=== PATIENT | female | born 1985 | race Caucasian/White ===

== ENCOUNTER 2017-07-25 11:41 | Emergency (ER) | payer OTHER, SELFPAY ==
[2017-07-25] MEDS ORDERED: Norflex 60 MG/2 ML IM ONE (12:23)
[2017-07-25] MEDS ORDERED: TORAdol 30 mg Injection IM ONE (12:23)
--- NOTE | 2017-07-25 12:25 | ERPHSYRPT ---
- History of Present Illness Time Seen by Provider: 07/25/17 12:19 Source: patient Patient Subjective Stated Complaint: "I fell down my basement steps last night. it was about 6 steps. i fell back onto my butt and went down like a slide" Triage Nursing Assessment: aox3, breathing easy unlabored, skin pink warm dry, steady slow gait Physician History: CC: back pain Hx: 32 y/o patient fell on stairs yesterday. She has hx of back problems. She now has low back pain radiating to hips. Normal uriantion. No neck pain. No chest or abd pain. No other injuries. Pain not better at home with APAP. States not . On custodial OCP. Timing/Duration: yesterday Back Pain Location: lumbar spine Back Pain Radiation: buttocks, upper legs Severity of Pain-Max: severe Severity of Pain-Current: moderate Allergies/Adverse Reactions: Penicillins Allergy (Verified 07/25/17 11:52) Home Medications: Aripiprazole [Abilify] 2 mg PO DAILY 07/25/17 [History] Citalopram Hydrobromide [Celexa] 10 mg PO DAILY 07/25/17 [History] Gabapentin 200 mg PO QID 07/25/17 [History] Hx Tetanus, Diphtheria Vaccination/Date Given: (unknown) - Review of Systems Constitutional: No Fever, No Chills Eyes: No Symptoms Ears, Nose, & Throat: No Symptoms Respiratory: No Dyspnea Cardiac: No Chest Pain Abdominal/Gastrointestinal: No Abdominal Pain, No Nausea, No Vomiting Musculoskeletal: Back Pain, Fall, Injury, No Neck Pain, No Joint Pain Skin: No Rash Neurological: No Focal Weakness, No Headache, No Parasthesia All Other Systems: Reviewed and Negative - Past Medical History Pertinent Past Medical History: Yes Other Medical History: mental health. prior back problems - Social History Smoking Status: Current every day smoker How long have you smoked: 1.5 ppd - Nursing Vital Signs Nursing Vital Signs: Initial Vital Signs Temperature 98.7 F 07/25/17 11:46 Pulse Rate 98 H 07/25/17 11:46 Respiratory Rate 14 07/25/17 11:46 Blood Pressure 145/93 07/25/17 11:46 O2 Sat by Pulse Oximetry 97 07/25/17 11:46 Pain Scale Pain Intensity [Left Lower 8 Back] Pain Intensity 8 - Physical Exam General Appearance: alert Eye Exam: PERRL/EOMI Ears, Nose, Throat Exam: normal ENT inspection, moist mucous membranes Neck Exam: normal inspection, non-tender, supple, No midline tenderness Respiratory Exam: normal breath sounds, lungs clear Cardiovascular Exam: regular rate/rhythm Gastrointestinal Exam: soft, No tenderness, No distention Back Exam: normal inspection, point tenderness (low lumbar) Extremity Exam: normal inspection, normal range of motion Neurologic Exam: alert, oriented x 3, cooperative, 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, sensation nml, other (2+ MSR's bilateral patellar), No motor deficits Skin Exam: warm, dry, No rash SpO2 Interpretation: normal SpO2: 97 Oxygen Delivery: Room Air - Course Nursing assessment & vital signs reviewed: Yes - Radiology Exams lumbar spine, pelvis X-ray Interpretation: Teleradiologist Report, No Fracture Ordered Tests: Active Orders 24 hr Category Date Time Status LUMBAR LIMITED (2 OR 3 VIEWS) Stat Exams 07/25/17 12:23 Completed PELVIS (1 OR 2 VIEWS) Stat Exams 07/25/17 12:23 Completed Medication Summary Discontinued Medications Generic Name Dose Route Start Last Admin Trade Name Goldyq PRN Reason Stop Dose Admin Ketorolac Tromethamine 60 mg 07/25/17 12:23 07/25/17 12:57 Toradol 30 Mg Injection IM 07/25/17 12:24 60 mg STAT ONE Administration Ketorolac Tromethamine Confirm 07/25/17 12:53 Toradol 30 Mg Injection Administered 07/25/17 12:54 Dose 60 mg .ROUTE .STK-MED ONE Orphenadrine Citrate 60 mg 07/25/17 12:23 07/25/17 12:56 Norflex 60 Mg/2 Ml IM 07/25/17 12:24 60 mg STAT ONE Administration Orphenadrine Citrate Confirm 07/25/17 12:53 Norflex 60 Mg/2 Ml Administered 07/25/17 12:54 Dose 60 mg .ROUTE .STK-MED ONE - Progress Progress Note: 07/25/17 13:36 Pt stable. Will release with instr. She has appt with Dr Murphy next week. Counseled pt/family regarding: diagnosis, need for follow-up - Departure Time of Disposition: 13:36 Departure Disposition: Home Clinical Impression: Fall down stairs, Lumbar sprain Condition: Stable Critical Care Time: No Referrals: MYRNA MURPHY [Primary Care Provider] - Instructions: Low Back Pain Additional Instructions: BACK INJURY 1. May apply moist heat frequently for relief of pain. Take care not to burn the skin. Do not use heat for more than 30 minutes at a time. 2. Try to sleep on a firm bed, flat on your back. 3. If no improvement is noticed in 2-3 days, follow up with your family physician. 4. If you notice any numbness, tingling, weakness, or problems with your bowel or bladder, you should call your family physician or return to the emergency department. No driving today or while taking norflex. Rx norflex. Rx naproxen. Follow up next week with Dr Murphy. Prescriptions: Naproxen 500 mg [Naprosyn 500 MG] 500 mg PO BID #20 tablet Orphenadrine Citrate 100 mg [Norflex 100 MG Tablet] 1 tab PO BID #10 tab
[2017-07-25] MEDS ORDERED: Norflex 60 MG/2 ML ONE (12:53)
[2017-07-25] MEDS ORDERED: TORAdol 30 mg Injection ONE (12:53)
[2017-07-25 13:02] VITALS: BP 111/69; PULSE 77
--- NOTE | 2017-07-25 13:02 | XRAY ---
Indication: Pain following fall. Comparison: None Single AP pelvis obtained. No bony, articular, or soft tissue abnormalities. Lumbar spine reported separately.
--- NOTE | 2017-07-25 13:06 | XRAY ---
Indication: Pain following fall. Comparison: None 3 views of the lumbar spine demonstrates 5 lumbar segments with partially sacralized L6 and tiny L6 anterior endplate spur. No other bony, articular, or soft tissue abnormalities.
[2017-07-25 13:38] VITALS: O2SAT 97
== END 2017-07-25 13:41 | disposition home or self-care (01) ==
LOC: ED 11:41
DX: S33.5XXA Sprain of ligaments of lumbar spine, initial encounter (principal); W10.9XXA Fall (on) (from) unspecified stairs and steps, initial encounter
CPT/HCPCS: 72100; 72170; 96372; 99284; J1885; J2360

== ENCOUNTER 2018-11-06 11:07 | Emergency (ER) | payer OTHER ==
--- NOTE | 2018-11-06 12:06 | ERPHSYRPT ---
- History of Present Illness Time Seen by Provider: 11/06/18 11:56 Source: patient Exam Limitations: no limitations Patient Subjective Stated Complaint: PT states "I broke the top of my foot a month ago and I was told to stay off of it and not go to work. Meanwhile my boss called me and said if I didn't come to work they were going to take me off of payroll so I went back and has been standing and walking on it. Now there is something definitely wrong with it. My foot hurts and it is swollen and bruised." Triage Nursing Assessment: Pt alert and oriented X 3, skin pwd. PT arrived wearing a boot that was to small for her foot, stated she borrowed it. Pt ambulates with a limp. PT right foot slightly swollen, bruised and tender. Physician History: The patient is a 33-year-old female with her mother complaining of worsening pain to the top of her right foot over the past few days. She states that she broke a bone in her foot one month ago. She was given a release from work. Her boss called her and told her that if she didn't come to work, she would not have a job. 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 She was given crutches but refused to use them. Now when she wakes up in the morning her right foot is very painful. Method of Injury: fell Occurred: other (1 month ago) Quality: constant, stabbing Severity of Pain-Max: moderate Severity of Pain-Current: moderate Lower Extremities Pain: foot: right Modifying Factors: Improves With: nothing Associated Symptoms: none Allergies/Adverse Reactions: Penicillins Allergy (Verified 07/25/17 11:52) naproxen Adverse Reaction (Intermediate, Verified 11/06/18 11:20) Vomiting Home Medications: Aripiprazole [Abilify] 2 mg PO DAILY 07/25/17 [History] Citalopram Hydrobromide [Celexa] 10 mg PO DAILY 07/25/17 [History] Gabapentin 200 mg PO QID 07/25/17 [History] Hx Tetanus, Diphtheria Vaccination/Date Given: Yes Hx Influenza Vaccination/Date Given: Yes Hx Pneumococcal Vaccination/Date Given: Yes Immunizations Up to Date: Yes - Review of Systems Constitutional: No Fever, No Chills Eyes: No Symptoms Ears, Nose, & Throat: No Symptoms Respiratory: No Cough, No Dyspnea Cardiac: No Chest Pain, No Edema, No Syncope Abdominal/Gastrointestinal: No Abdominal Pain, No Nausea, No Vomiting, No Diarrhea Genitourinary Symptoms: No Dysuria Musculoskeletal: Fall, Injury Skin: No Rash Neurological: No Dizziness, No Focal Weakness, No Sensory Changes Psychological: No Symptoms Endocrine: No Symptoms Hematologic/Lymphatic: No Symptoms Immunological/Allergic: No Symptoms All Other Systems: Reviewed and Negative - Past Medical History Pertinent Past Medical History: Yes Psycho-Social History: Bipolar Other Medical History: mental health. prior back problems - Past Surgical History Past Surgical History: No - Social History Smoking Status: Current every day smoker How long have you smoked: 17 years Exposure to second hand smoke: Yes Drug Use: none Patient Lives Alone: No - Female History Hx Last Menstrual Period: 10/19/2018 Hx Now: No - Nursing Vital Signs Nursing Vital Signs: Initial Vital Signs Temperature 98.5 F 11/06/18 11:12 Pulse Rate 99 H 11/06/18 11:12 Respiratory Rate 18 11/06/18 11:12 Blood Pressure 134/73 11/06/18 11:12 O2 Sat by Pulse Oximetry 98 11/06/18 11:12 Pain Scale Pain Intensity 6 - Physical Exam General Appearance: alert Eyes, Ears, Nose, Throat Exam: moist mucous membranes Neck Exam: non-tender, supple Cardiovascular/Respiratory Exam: chest non-tender, normal breath sounds, regular rate/rhythm, no respiratory distress Gastrointestinal/Abdominal Exam: non-tender, guarding Back Exam: normal inspection, No vertebral tenderness Hips Exam: bilateral: normal inspection Legs Exam: bilateral leg: normal inspection Knees Exam: bilateral knee: normal inspection Ankle Exam: bilateral ankle: normal inspection Foot Exam: right foot: soft tissue tenderness (midfoot), left foot: normal inspection Neuro/Tendon Exam: normal sensation, normal motor functions Mental Status Exam: alert, oriented x 3, cooperative Skin Exam: normal color, warm, dry SpO2 Interpretation: normal SpO2: 98 Oxygen Delivery: Room Air - Radiology Exams Right Foot X-ray Interpretation: Reviewed by me, Teleradiologist Report (per Dr Abreu), Negative, No Fracture, Other (heel spur, talonavicular accessory ossicle, tiny cuboid accessory ossicle) Ordered Tests: Active Orders 24 hr Category Date Time Status FOOT (MINIMUM 3 VIEWS) Stat Exams 11/06/18 12:10 Completed Medication Summary Discontinued Medications Generic Name Dose Route Start Last Admin Trade Name Miguel A PRN Reason Stop Dose Admin Ketorolac Tromethamine 60 mg 11/06/18 12:10 11/06/18 12:14 Toradol 30 Mg Injection IM 11/06/18 12:11 60 mg STAT ONE Administration Ketorolac Tromethamine Confirm 11/06/18 12:12 Toradol 30 Mg Injection Administered 11/06/18 12:13 Dose 60 mg .ROUTE .STK-MED ONE - Progress Progress: unchanged Counseled pt/family regarding: diagnosis, rad results - Departure Time of Disposition: 13:03 Departure Disposition: Home ( ) Clinical Impression: Tendinitis of right foot Condition: Stable Critical Care Time: No Referrals: SINDY CISSE MD [Primary Care Provider] - Additional Instructions: You have tendinitis of the right foot. The x-ray did not show any broken bones. I think you develop tendinitis because of the hard boot you were wearing was too small. You were placed in an Henri wrap in the ER. You were given Toradol 60 mg by IM in the ER. Take ibuprofen 600 mg every 6 hours as needed. Ice your foot 2-3 times a day until pain free. You are released to go back to work. Follow-up with your primary medical doctor as needed. Prescriptions: Ibuprofen 1 tab PO Q6H PRN PRN #24 tablet PRN Reason: pain
[2018-11-06] MEDS ORDERED: TORAdol 30 mg Injection IM ONE (12:10)
[2018-11-06] MEDS ORDERED: TORAdol 30 mg Injection ONE (12:12)
[2018-11-06 12:18] VITALS: PULSE 88
--- NOTE | 2018-11-06 12:52 | XRAY ---
Indication: Pain following injury one month ago. Comparison: None 3 nonweightbearing views of the right foot demonstrates tiny posterior heel spur, small talonavicular accessory ossicle, and tiny cuboid accessory ossicle. No other bony, articular, or soft tissue abnormalities.
[2018-11-06 13:19] VITALS: BP 126/68; O2SAT 99
== END 2018-11-06 13:20 | disposition home or self-care (01) ==
LOC: ED 11:07
DX: M77.51 Other enthesopathy of right foot and ankle (principal); Z79.899 Other long term (current) drug therapy
CPT/HCPCS: 73630; 96372; 99284; J1885

== ENCOUNTER 2020-03-04 10:02 | Emergency (ER) | payer OTHER ==
[2020-03-04 10:24] VITALS: O2SAT 98
[2020-03-04] MEDS ORDERED: TORAdol 30 mg Injection IV ONE (10:38)
[2020-03-04] MEDS ORDERED: Norflex 60 MG/2 ML IM ONE (10:38)
[2020-03-04] MEDS ORDERED: Norflex 60 MG/2 ML IV ONE (10:46)
--- NOTE | 2020-03-04 10:47 | ERPHSYRPT ---
- History of Present Illness Time Seen by Provider: 03/04/20 10:42 Source: patient Exam Limitations: no limitations Patient Subjective Stated Complaint: Pt states that she has fibromyalgia and that this is a flair up, pt states that it hurts in her lower back, nathalie knees and is itching in her neck area Triage Nursing Assessment: Pt brought to the ER by her mother, mom has double pneumonia and is at the respiratory clinic and was tested negative for covid, tachycardic, reports having these symptoms in the past with the last being 2 weeks ago, pulses normal, rates pain 9/10, lungs clear, last BM today, last intake 1000, skin n/w/d Physician History: Pt states that she has fibromyalgia and that this is a flair up, pt states that it hurts in her lower back, nathalie knees and is itching in her neck area Timing/Duration: today Severity: moderate Associated Symptoms: denies symptoms Allergies/Adverse Reactions: Penicillins Allergy (Severe, Verified 03/04/20 10:24) naproxen Allergy (Intermediate, Verified 03/04/20 10:24) Vomiting Home Medications: Benztropine Mesylate [Cogentin] 1 mg PO BID 03/04/20 [History] Cariprazine HCl [Vraylar] 1.5 mg PO DAILY 03/04/20 [History] Duloxetine HCl [Cymbalta] 20 mg PO DAILY 03/04/20 [History] Metformin HCl 500 mg [Glucophage 500 MG] 500 mg PO BIDWM 03/04/20 [History ] Prazosin HCl [Minipress] 2 mg PO HS 03/04/20 [History] Pregabalin [Lyrica 150Mg] 150 mg PO BID 03/04/20 [History] Trazodone HCl 150 mg PO UD 03/04/20 [History] Hx Tetanus, Diphtheria Vaccination/Date Given: Yes Hx Influenza Vaccination/Date Given: Yes Hx Pneumococcal Vaccination/Date Given: Yes Travel Risk - International Travel Have you traveled outside of the country in past 3 weeks: No Have you or anyone close to you been diagnosed with or: No Do your reside in a community with a known COVID-19 case?: Yes If Yes where:: [facility] - Coronavirus Screening Has patient experienced Coronavirus symptoms: No - Review of Systems Constitutional: No Fever, No Chills Eyes: No Symptoms Ears, Nose, & Throat: No Symptoms Respiratory: No Cough, No Dyspnea Cardiac: No Chest Pain, No Edema, No Syncope Abdominal/Gastrointestinal: No Abdominal Pain, No Nausea, No Vomiting, No Diarrhea Genitourinary Symptoms: No Dysuria Musculoskeletal: Arthralgias, Back Pain, Neck Pain Skin: No Rash Neurological: No Dizziness, No Focal Weakness, No Sensory Changes Psychological: No Symptoms Endocrine: No Symptoms All Other Systems: Reviewed and Negative - Past Medical History Pertinent Past Medical History: Yes Endocrine Medical History: Diabetes Type II Musculoskeletal History: Fibromyalgia Psycho-Social History: Bipolar Other Medical History: mental health. prior back problems. PTSD - Past Surgical History Past Surgical History: Yes Other Surgical History: tubes in ears in 2nd grade - Social History Smoking Status: Current every day smoker How long have you smoked: 17 years Exposure to second hand smoke: Yes Drug Use: none Patient Lives Alone: No - Female History Hx Last Menstrual Period: 03/03/2020 Hx Now: No - Nursing Vital Signs Nursing Vital Signs: Initial Vital Signs Temperature 98.0 F 03/04/20 10:10 Pulse Rate 113 H 03/04/20 10:10 Blood Pressure 140/99 03/04/20 10:10 O2 Sat by Pulse Oximetry 98 03/04/20 10:10 Pain Scale Pain Intensity [Lower Distal 9 Back] Pain Intensity 9 - Physical Exam General Appearance: no apparent distress, alert Eye Exam: PERRL/EOMI, eyes nml inspection Ears, Nose, Throat Exam: normal ENT inspection, TMs normal, pharynx normal, moist mucous membranes Neck Exam: normal inspection, non-tender, supple, full range of motion Respiratory Exam: normal breath sounds, lungs clear, No respiratory distress Cardiovascular Exam: regular rate/rhythm, normal heart sounds, normal peripheral pulses Gastrointestinal/Abdomen Exam: soft, normal bowel sounds, No tenderness, No mass Back Exam: normal inspection, normal range of motion, muscle spasm, No CVA tenderness, No vertebral tenderness Extremity Exam: normal inspection, normal range of motion, pelvis stable Neurologic Exam: alert, oriented x 3, cooperative, normal mood/affect, nml cerebellar function, nml station & gait, sensation nml, No motor deficits Skin Exam: normal color, warm, dry, No rash Lymphatic Exam: No adenopathy SpO2: 98 - Course Nursing assessment & vital signs reviewed: Yes Ordered Tests: Active Orders 24 hr Category Date Time Status Clean Catch Urine Specimen STAT Care 03/04/20 10:44 Active CULTURE,URINE Stat Lab 03/04/20 10:39 Received UA W/RFX UR CULTURE Stat Lab 03/04/20 10:39 Completed Urine Triage Profile Stat Lab 03/04/20 10:45 Completed Medication Summary Discontinued Medications Generic Name Dose Route Start Last Admin Trade Name Goldyq PRN Reason Stop Dose Admin Ceftriaxone Sodium 1,000 mg 03/04/20 11:24 Rocephin 1000 Mg Inj IM 03/04/20 11:25 STAT ONE Ketorolac Tromethamine 30 mg 03/04/20 10:38 03/04/20 10:51 Toradol 30 Mg Injection IV 03/04/20 10:39 30 mg STAT ONE Administration Ketorolac Tromethamine Confirm 03/04/20 10:49 Toradol 30 Mg Injection Administered 03/04/20 10:50 Dose 30 mg .ROUTE .STK-MED ONE Orphenadrine Citrate 60 mg 03/04/20 10:38 03/04/20 10:44 Norflex 60 Mg/2 Ml IM 03/04/20 10:39 Not Given STAT ONE Orphenadrine Citrate 30 mg 03/04/20 10:46 03/04/20 10:52 Norflex 60 Mg/2 Ml IV 03/04/20 10:47 30 mg STAT ONE Administration Orphenadrine Citrate Confirm 03/04/20 10:49 Norflex 60 Mg/2 Ml Administered 03/04/20 10:50 Dose 60 mg .ROUTE .STK-MED ONE Lab/Rad Data: Laboratory Results 03/04/20 03/04/20 Range/Units 10:45 10:39 Urine Color YELLOW (YELLOW) Urine Appearance SLIGHTLY CLOUDY (CLEAR) Urine pH 8.0 (5-6) Ur Specific [place] 1.016 (1.005-1.025) Urine Protein NEGATIVE (Negative) Urine Ketones NEGATIVE (NEGATIVE) Urine Blood MODERATE (0-5) Prosper/ul Urine Nitrite NEGATIVE (NEGATIVE) Urine Bilirubin NEGATIVE (NEGATIVE) Urine Urobilinogen NEGATIVE (0-1) mg/dL Ur Leukocyte Esterase SMALL (NEGATIVE) Urine WBC (Auto) 3-5 (0-5) /HPF Urine RBC (Auto) 11-15 (0-2) /HPF U Epithel Cells (Auto) FEW (FEW) /HPF Urine Bacteria (Auto) RARE (NEGATIVE) /HPF Urine Mucus (Auto) SLIGHT (NEGATIVE) /HPF Urine Culture Reflexed YES (NO) Urine Glucose NEGATIVE (NEGATIVE) mg/dL Urine Opiates Level NEGATIVE (NEGATIVE) Ur Methadone NEGATIVE (NEGATIVE) Urine Barbiturates NEGATIVE (NEGATIVE) Ur Phencyclidine (PCP) NEGATIVE (NEGATIVE) Urine Amphetamine NEGATIVE (NEGATIVE) U Benzodiazepine Level NEGATIVE (NEGATIVE) Urine Cocaine NEGATIVE (NEGATIVE) Urine Marijuana (THC) NEGATIVE (NEGATIVE) - Progress Progress: improved Counseled pt/family regarding: lab results, diagnosis, need for follow-up - Departure Departure Disposition: Home Clinical Impression: Fibromyalgia muscle pain UTI (urinary tract infection) Qualifiers: Urinary tract infection type: site unspecified Hematuria presence: without hematuria Qualified Code(s): N39.0 - Urinary tract infection, site not specified Condition: Stable Critical Care Time: No Referrals: MYRNA WATSON [Primary Care Provider] - Instructions: Urinary Tract Infection, Adult (DC), Fibromyalgia Additional Instructions: PHANI JEANE was seen on 03/04/20 n the Emergency Room. At that time you were treated for an emergent condition, during your visit Laboratory, Radiology and/or other procedures may have been ordered. It is very important that you follow-up with your Primary Care Physician MYRNA WATSON within the next 24-48 hours to review your Emergency Room visit and the final results of testing that was ordered. Some test results such as Urine Cultures, Blood Cultures, and other cultures if ordered will not be finalized for 24-48 hours. If you do not have a Primary Care Provider please call the medical records department at [phone] to obtain a copy of your results or you may sign into our patient portal to obtain these results by visiting us @ [email or web address] and completing the following steps: 1. Click on the Patient Portal link 2. Click the Patient Self Enrollment Link to complete the enrollment form and entering your 3. Once the enrollment form is completed you will receive an email with a temporary ID and password at the email address you provided. 4. Next choose a user name and password. Your user name must be at least 4 characters long and your password must be at least 4 characters long. 5. Choose a security question from the list and provide your answer to the question. If you already have signed into the Health Portal you may access your Health Care Information 02/06 by the following steps: 1. Login to our website @ [email or web address] 2. Enter your original user name and password. FAQS The [facility] Health Portal is an online tool that contains your Lab Results, Radiology Reports, Visit History, Discharge Instructions and Health Summary Lab and Radiology Results will not be available for 72 hours on the portal. The Portal is a secure site, passwords are encryted and URLs are re-written so they cannot be copied and pasted. You and authorized family members are the only ones who can access your Portal. Also there is a timeout feature that protects your information if you leave the Portal page open. If you have technical difficulty please use the Contact Us link on the page this will allow you to submit any questions you have regarding the Portal or you may contact the Medical Record Department at [phone]. Discharge/Care Plan MIRANDAPHANI RITTER was seen on 03/04/20 in the Emergency Room. The patient was counseled regarding Diagnosis,Lab results, Imaging studies, need for follow up and when to return to the Emergency Room. Prescriptions given: Discharge Note I have spoken with the patient and/or caregivers. I have explained the patient' s condition, diagnosis and treatment plan based on the information available to me at this time. I have answered the patient's and/or caregiver's questions and addressed any concerns. The patient and/or caregivers have as good understanding of the patient's diagnosis, condition and treatment plan as can be expected at this point. The vital signs have been stable. The patient's condition is stable and appropriate for discharge from the emergency department. The patient will pursue further outpatient evaluation with the primary care physician or other designated or consulting physician as outlined in the discharge instructions. The patient and/or caregivers are agreeable to this plan of care and follow-up instructions have been explained in detail. The patient and/or caregivers have received these instruction. The patient/and or caregivers are aware that any significant change in condition or worsening of symptoms should prompt an immediate return to this or the closest emergency department or call 911. Prescriptions: Ciprofloxacin [Cipro 500 MG] 500 mg PO BIDAC #20 tablet
[2020-03-04] MEDS ORDERED: Norflex 60 MG/2 ML ONE (10:49)
[2020-03-04] MEDS ORDERED: TORAdol 30 mg Injection ONE (10:49)
[2020-03-04 11:06] LABS: Amphetamine,Urine NEGATIVE (NEGATIVE); Barbiturate,Urine NEGATIVE (NEGATIVE); Benzodiazepine,Urine NEGATIVE (NEGATIVE); Cocaine,Urine NEGATIVE (NEGATIVE); Methadone,Urine NEGATIVE (NEGATIVE); Opiate,Urine NEGATIVE (NEGATIVE); PCP,Urine NEGATIVE (NEGATIVE); THC,Urine NEGATIVE (NEGATIVE)
[2020-03-04 11:06] LABS: Appearance SLIGHTLY CLOUDY (CLEAR); Bacteria RARE /HPF (NEGATIVE); Bilirubin NEGATIVE (NEGATIVE); Blood MODERATE Ery/ul (0-5); Epithelial Cells FEW /HPF (FEW); Glucose NEGATIVE (NEGATIVE); Ketones NEGATIVE (NEGATIVE); Leukocyte Esterase SMALL (NEGATIVE); Mucus SLIGHT /HPF (NEGATIVE); Nitrite NEGATIVE (NEGATIVE); Protein,Urine Dip NEGATIVE (Negative); Specific Gravity 1.016 (1.005-1.025); Urobilinogen NEGATIVE mg/dL (0-1)
[2020-03-04] MEDS ORDERED: Rocephin 1000 MG INJ IM ONE (11:24)
[2020-03-04] MEDS ORDERED: Rocephin 1000 MG INJ ONE (11:38)
[2020-03-04 11:49] VITALS: BP 122/87; PULSE 96
== END 2020-03-04 11:59 | disposition home or self-care (01) ==
LOC: ED 10:02
DX: N39.0 Urinary tract infection, site not specified (principal)
CPT/HCPCS: 36000; 80307; 81001; 87086; 96372; 96374; 96375; 99284; J0696; J1885; J2360

== ENCOUNTER 2020-04-01 10:57 | Emergency (ER) | payer OTHER ==
[2020-04-01] MEDS ORDERED: TORAdol 30 mg Injection ONE (11:18)
[2020-04-01] MEDS ORDERED: TORAdol 30 mg Injection IM ONE (11:19)
--- NOTE | 2020-04-01 11:19 | ERPHSYRPT ---
- History of Present Illness Time Seen by Provider: 04/01/20 11:14 Source: patient Exam Limitations: no limitations Physician History: "The dog ate a weeks worth of my Lyrica> c/o severe generalized muscle pain. Not due for refill until 04/06. Timing/Duration: day(s) (3) Severity: severe Modifying Factors: Improves With: nothing Associated Symptoms: malaise Allergies/Adverse Reactions: Penicillins Allergy (Severe, Verified 04/01/20 11:04) naproxen Allergy (Intermediate, Verified 04/01/20 11:04) Vomiting Home Medications: Cariprazine HCl [Vraylar] 1.5 mg PO DAILY 03/04/20 [History] Duloxetine HCl [Cymbalta] 20 mg PO DAILY 03/04/20 [History] Metformin HCl 500 mg [Glucophage 500 MG] 500 mg PO BIDWM 03/04/20 [History ] Prazosin HCl [Minipress] 2 mg PO HS 03/04/20 [History] Pregabalin [Lyrica 150Mg] 150 mg PO TID 03/04/20 [History] Trazodone HCl 300 mg PO HS 03/04/20 [History] Hx Tetanus, Diphtheria Vaccination/Date Given: Yes Hx Influenza Vaccination/Date Given: Yes Hx Pneumococcal Vaccination/Date Given: Yes Travel Risk - International Travel Have you traveled outside of the country in past 3 weeks: No Have you or anyone close to you been diagnosed with or: No Do your reside in a community with a known COVID-19 case?: Yes If Yes where:: [facility] - Review of Systems Constitutional: No Fever, No Chills Eyes: No Symptoms Ears, Nose, & Throat: No Symptoms Respiratory: No Cough, No Dyspnea Cardiac: No Chest Pain, No Edema, No Syncope Abdominal/Gastrointestinal: No Abdominal Pain, No Nausea, No Vomiting, No Diarrhea Genitourinary Symptoms: No Dysuria Musculoskeletal: No Back Pain, No Neck Pain Skin: No Rash Neurological: No Dizziness, No Focal Weakness, No Sensory Changes Psychological: No Symptoms Endocrine: No Symptoms All Other Systems: Reviewed and Negative - Past Medical History Pertinent Past Medical History: Yes Endocrine Medical History: Diabetes Type II Musculoskeletal History: Fibromyalgia Psycho-Social History: Bipolar Other Medical History: mental health. prior back problems. PTSD - Past Surgical History Past Surgical History: Yes Other Surgical History: tubes in ears in 2nd grade - Social History Smoking Status: Current every day smoker How long have you smoked: 17 years Exposure to second hand smoke: Yes Drug Use: none Patient Lives Alone: No - Physical Exam General Appearance: mild distress, alert Eye Exam: PERRL/EOMI, eyes nml inspection Ears, Nose, Throat Exam: normal ENT inspection, TMs normal, pharynx normal, moist mucous membranes Neck Exam: normal inspection, non-tender, supple, full range of motion Respiratory Exam: normal breath sounds, lungs clear, No respiratory distress Cardiovascular Exam: regular rate/rhythm, normal heart sounds, normal peripheral pulses Gastrointestinal/Abdomen Exam: soft, normal bowel sounds, No tenderness, No mass Back Exam: normal inspection, normal range of motion, No CVA tenderness, No vertebral tenderness Extremity Exam: normal inspection, normal range of motion, pelvis stable, tenderness Neurologic Exam: alert, oriented x 3, cooperative, normal mood/affect, nml cerebellar function, nml station & gait, sensation nml, No motor deficits Skin Exam: normal color, warm, dry, No rash Lymphatic Exam: No adenopathy - Course Nursing assessment & vital signs reviewed: Yes - Progress Progress: unchanged - Departure Departure Disposition: Home Clinical Impression: Myalgia Condition: Stable Critical Care Time: No Referrals: MYRNA WATSON [Primary Care Provider] - Instructions: Chronic Pain (DC)
[2020-04-01 11:53] VITALS: BP 126/95; PULSE 115; O2SAT 97
== END 2020-04-01 11:53 | disposition home or self-care (01) ==
LOC: ED 10:57
DX: M79.18 Myalgia, other site (principal); E11.9 Type 2 diabetes mellitus without complications; Z79.899 Other long term (current) drug therapy; Z79.84 Long term (current) use of oral hypoglycemic drugs
CPT/HCPCS: 96372; 99283; J1885

== ENCOUNTER 2021-02-17 20:43 | Observation (INO) | payer OTHER ==
[2021-02-17] MEDS ORDERED: MORPHINE SULFATE 4 MG INJ IV ONE ×2 (21:13→23:30)
[2021-02-17] MEDS ORDERED: Sodium Chloride 0.9% 1000 ML 1,000 ML IV STA (21:13)
[2021-02-17] MEDS ORDERED: Zofran 4 MG/2 ML VIAL IV ONE (21:13)
[2021-02-17] MEDS ORDERED: Zofran 4 MG/2 ML VIAL ONE (21:23)
[2021-02-17] MEDS ORDERED: MORPHINE SULFATE 4 MG INJ ONE ×2 (21:24→23:32)
[2021-02-17] MEDS ORDERED: Sodium Chloride 0.9% 1000 ML 1,000 ML ONE (21:24)
[2021-02-17 21:35] LABS: Absolute Neutrophil Ct (ANC) 8.68 (1.4-6.9); Appearance SLIGHTLY CLOUDY (CLEAR); BASOPHIL % 0.3 % (0.0-0.4); Bacteria FEW /HPF (NEGATIVE); Basophil (Absolute #) 0.04 (0-0.4); Bilirubin NEGATIVE (NEGATIVE); Blood SMALL Ery/ul (0-5); Eosinophil (Absolute #) 0.15 (0-0.5); Epithelial Cells RARE /HPF (FEW); Glucose NEGATIVE (NEGATIVE); Hematocrit 42.8 % (35-47); Hemoglobin 14.3 gm/dl (12.0-16.0); Ketones NEGATIVE (NEGATIVE); Leukocyte Esterase TRACE (NEGATIVE); Lymphocyte (Absolute #) 5.86 (1.0-4.6); Lymphocytes % 37.8 % (24.0-44.0); Mean Cell Volume 94.9 fl (78-100); Mean Corpuscular Hemoglobin 31.7 pg (26-32); Mean Corpuscular Hgb Concent. 33.4 g/dl (32-36); Mean Platelet Volume 9.8 fl (7.5-11.0); Monocyte (Absolute #) 0.79 (0.0-1.3); Monocytes % 5.1 % (0.0-12.0); Mucus SLIGHT /HPF (NEGATIVE); Neutrophil % 55.8 % (36.0-66.0); Nitrite NEGATIVE (NEGATIVE); Platelet Count 343 K/mm3 (150-450); Protein,Urine Dip 30 (Negative); Red Blood Count 4.51 M/mm3 (4.1-5.4); Red Cell Distribution Width 13.4 % (11.5-14.0); Specific Gravity 1.028 (1.005-1.025); Urobilinogen 2 mg/dL (0-1); WBC 0-2 /HPF (0-5); White Blood Count 15.5 K/mm3 (4.0-10.5)
--- NOTE | 2021-02-17 21:39 | ERPHSYRPT ---
- History of Present Illness Time Seen by Provider: 02/17/21 21:03 Historian: patient Exam Limitations: no limitations Patient Subjective Stated Complaint: pt states, "I was at an auction and felt a pop." Triage Nursing Assessment: pt ambulated into the er; pt is axo x4; c/o rt abd and rt flank pain; pt states 9/10 pain; pt is grabbing RLQ; pt states she had her fallopain tubes and uterus removed on 02/01/21; pt states that pain radiates from RLQ to rt flank region; abd is distended, firm, tender to the touch; urine is jacquelyn in color; pt denies rebound tenderness; pt denies urinary difficulties; bowel sounds are hyperactive in all quads; pt states 1 episode of vomiting prior to coming in; hypertensive Physician History: 35 years old female status post laparoscopic hysterectomy almost 15 days ago presented in the ER with chief complaint of right lower quadrant sudden onset pain after she lifted a 40 pound box and felt a popping sound in the right lower quadrant. She is complaining of sharp shooting moderate to severe intensity pain which is aggravated with movements palpation and partial relief with being still. She denies any associated nausea or vomiting. Denies any urinary symptoms. Timing/Duration: hour(s) (2), sudden, worse Activities at Onset: activity, other Quality: sharpness (Heavy object) Abdominal Pain Onset Location: RLQ Pain Radiation: no radiation Severity of Pain-Max: moderate Severity of Pain-Current: moderate Modifying Factors: Improves With: rest. Worsens With: movement, palpation Associated Symptoms: denies symptoms Previous symptoms: no prior history Allergies/Adverse Reactions: Penicillins Allergy (Severe, Verified 02/17/21 20:58) naproxen Allergy (Intermediate, Verified 02/17/21 20:58) Vomiting indomethacin Allergy (Verified 02/17/21 20:58) Vomiting Home Medications: Cariprazine HCl [Vraylar] 1.5 mg PO DAILY 03/04/20 [History] Duloxetine HCl [Cymbalta] 20 mg PO DAILY 03/04/20 [History] Metformin HCl 500 mg [Glucophage 500 MG] 500 mg PO BIDWM 03/04/20 [History] Prazosin HCl [Minipress] 2 mg PO HS 03/04/20 [History] Pregabalin [Lyrica 150Mg] 150 mg PO TID 03/04/20 [History] Trazodone HCl 300 mg PO HS 03/04/20 [History] Hx Tetanus, Diphtheria Vaccination/Date Given: Yes Hx Influenza Vaccination/Date Given: Yes Hx Pneumococcal Vaccination/Date Given: Yes Immunizations Up to Date: Yes Travel Risk - International Travel Have you traveled outside of the country in past 3 weeks: No - Coronavirus Screening Are you exhibiting any of the following symptoms?: Yes Symptoms: Vomiting/Diarrhea Close contact with a COVID-19 positive Pt in past 14-21 Days: No - Vaccine Status Have you recieved a Covid-19 vaccination: No - Review of Systems Constitutional: No Symptoms Eyes: No Symptoms Ears, Nose, & Throat: No Symptoms Respiratory: No Symptoms Cardiac: No Symptoms Abdominal/Gastrointestinal: Abdominal Pain Genitourinary Symptoms: No Symptoms Musculoskeletal: No Symptoms Skin: No Symptoms Neurological: No Symptoms Psychological: No Symptoms Endocrine: No Symptoms Hematologic/Lymphatic: No Symptoms Immunological/Allergic: No Symptoms - Past Medical History Pertinent Past Medical History: Yes Endocrine Medical History: Diabetes Type II Musculoskeletal History: Fibromyalgia Psycho-Social History: Bipolar Other Medical History: mental health. prior back problems. PTSD - Past Surgical History Past Surgical History: Yes Female Surgical History: Hysterectomy, Tubal Ligation Other Surgical History: tubes in ears in 2nd grade, ovaries still in place - Social History Smoking Status: Current every day smoker How long have you smoked: 17 years Exposure to second hand smoke: Yes Drug Use: none Patient Lives Alone: No - Female History Hx Now: No - Nursing Vital Signs Nursing Vital Signs: Initial Vital Signs Temperature 98 F 02/17/21 21:01 Pulse Rate 105 H 02/17/21 21:01 Respiratory Rate 18 02/17/21 21:01 Blood Pressure 147/102 02/17/21 21:01 O2 Sat by Pulse Oximetry 97 02/17/21 21:01 Pain Scale Pain Intensity 0 - Physical Exam General Appearance: no apparent distress Eye Exam: eyes nml inspection Ears, Nose, Throat Exam: normal ENT inspection, pharynx normal Neck Exam: normal inspection, supple, full range of motion Respiratory Exam: normal breath sounds, lungs clear Cardiovascular Exam: regular rate/rhythm, normal heart sounds Gastrointestinal/Abdomen Exam: soft, tenderness (Right lower quadrant/suprapubic area), guarding, other (Well-healing port entry scar cortez), No normal bowel sounds (Hypoactive) Back Exam: normal inspection, normal range of motion Extremity Exam: normal inspection, normal range of motion Neurologic Exam: alert, oriented x 3, cooperative Skin Exam: normal color SpO2 Interpretation: normal SpO2: 94 O2 Delivery: Room Air Ordered Tests: Active Orders 24 hr Category Date Time Status IV Insertion STAT Care 02/17/21 21:13 Active ABDOMEN AND PELVIS W CONTRAST [CT] Stat Exams 02/17/21 21:14 Taken CBC W DIFF Stat Lab 02/17/21 21:18 Completed CMP Stat Lab 02/17/21 21:18 Completed CULTURE,URINE Stat Lab 02/17/21 21:18 Received UA W/RFX UR CULTURE Stat Lab 02/17/21 21:18 Completed Medication Summary Discontinued Medications Generic Name Dose Route Start Last Admin Trade Name Freq PRN Reason Stop Dose Admin Sodium Chloride 1,000 mls @ 999 mls/hr 02/17/21 21:13 02/17/21 22:29 Sodium Chloride 0.9% 1000 Ml IV 02/17/21 22:13 Infused .Q1H1M STA Infusion Sodium Chloride Confirm 02/17/21 21:24 Sodium Chloride 0.9% 1000 Ml Administered 02/17/21 21:25 Dose 1,000 mls @ ud .ROUTE .STK-MED ONE Morphine Sulfate 4 mg 02/17/21 21:13 02/17/21 21:29 Morphine Sulfate 4 Mg Inj IV 02/17/21 21:14 4 mg STAT ONE Administration Morphine Sulfate Confirm 02/17/21 21:24 Morphine Sulfate 4 Mg Inj Administered 02/17/21 21:25 Dose 4 mg .ROUTE .STK-MED ONE Ondansetron HCl 4 mg 02/17/21 21:13 02/17/21 21:28 Zofran 4 Mg/2 Ml Vial IV 02/17/21 21:14 4 mg STAT ONE Administration Ondansetron HCl Confirm 02/17/21 21:23 Zofran 4 Mg/2 Ml Vial Administered 02/17/21 21:24 Dose 4 mg .ROUTE .STK-MED ONE Lab/Rad Data: Laboratory Result Diagrams 02/17/21 21:18 02/17/21 21:18 Laboratory Results 02/17/21 02/17/21 02/17/21 Range/Units 21:18 21:18 21:18 WBC 15.5 H (4.0-10.5) K/mm3 RBC 4.51 (4.1-5.4) M/mm3 Hgb 14.3 (12.0-16.0) gm/dl Hct 42.8 (35-47) % MCV 94.9 (78-100) fl MCH 31.7 (26-32) pg MCHC 33.4 (32-36) g/dl RDW 13.4 (11.5-14.0) % Plt Count 343 (150-450) K/mm3 MPV 9.8 (7.5-11.0) fl Gran % 55.8 (36.0-66.0) % Eos # (Auto) 0.15 (0-0.5) Absolute Lymphs (auto) 5.86 H (1.0-4.6) Absolute Monos (auto) 0.79 (0.0-1.3) Lymphocytes % 37.8 (24.0-44.0) % Monocytes % 5.1 (0.0-12.0) % Eosinophils % 1.0 (0.00-5.0) % Basophils % 0.3 (0.0-0.4) % Absolute Granulocytes 8.68 H (1.4-6.9) Basophils # 0.04 (0-0.4) Sodium 138 (137-145) mmol/L Potassium 3.5 (3.5-5.1) mmol/L Chloride 102 (98-107) mmol/L Carbon Dioxide 28 (22-30) mmol/L Anion Gap 12.6 (5-15) MEQ/L BUN 10 (7-17) mg/dL Creatinine 0.61 (0.52-1.04) mg/dL Estimated GFR > 60.0 ML/MIN Glucose 172 H (74-106) mg/dL Calcium 9.1 (8.4-10.2) mg/dL Total Bilirubin 0.20 (0.2-1.3) mg/dL AST 32 (14-36) U/L ALT 31 (0-35) U/L Alkaline Phosphatase 93 (38-126) U/L Serum Total Protein 7.9 (6.3-8.2) g/dL Albumin 4.6 (3.5-5.0) g/dL Urine Color YELLOW (YELLOW) Urine Appearance SLIGHTLY CLOUDY (CLEAR) Urine pH 6.0 (5-6) Ur Specific [place] 1.028 (1.005-1.025) Urine Protein 30 (Negative) Urine Ketones NEGATIVE (NEGATIVE) Urine Blood SMALL (0-5) Prosper/ul Urine Nitrite NEGATIVE (NEGATIVE) Urine Bilirubin NEGATIVE (NEGATIVE) Urine Urobilinogen 2 (0-1) mg/dL Ur Leukocyte Esterase TRACE (NEGATIVE) Urine WBC (Auto) 0-2 (0-5) /HPF Urine RBC (Auto) 6-10 (0-2) /HPF U Epithel Cells (Auto) RARE (FEW) /HPF Urine Bacteria (Auto) FEW (NEGATIVE) /HPF Calcium Oxalate Crystal 11-25 (NEGATIVE) /HPF Urine Mucus (Auto) SLIGHT (NEGATIVE) /HPF Urine Culture Reflexed YES (NO) Urine Glucose NEGATIVE (NEGATIVE) mg/dL Slides for Path Review YES - Progress Progress: improved, pain not gone completely, re-examined Progress Note: 02/17/21 23:27 35 years old is evaluated for right-sided abdominal pain. She has hypoactive bowel sounds. Given fluid bolus and pain medication, on reevaluation feeling better but pain is not completely resolved. Work-up showed white count of 15, grossly unremarkable chemistries. No UTI. I have obtained CT abdomen pelvis which showed partial small bowel obstruction. We will keep patient n.p.o., fluid and pain medicine as needed. Discussed with 10 patient is being admitted for observation. Plan discussed with patient who understand and agrees with it. Discussed with .: Marion Will see patient in: hospital (observation) Counseled pt/family regarding: lab results, diagnosis, rad results - Departure Departure Disposition: Observation Clinical Impression: Partial obstruction of small intestine Condition: Stable Critical Care Time: No Referrals: DOCTOR,NO FAMILY [Primary Care Provider] -
[2021-02-17 21:49] LABS: ALBUMIN 4.6 g/dL (3.5-5.0); ALKALINE PHOSPHATASE 93 U/L (38-126); ANION GAP 12.6 MEQ/L (5-15); BLOOD UREA NITROGEN 10 mg/dL (7-17); CHLORIDE 102 mmol/L (98-107); Calcium 9.1 mg/dL (8.4-10.2); Carbon Dioxide 28 mmol/L (22-30); Creatinine 1 0.61 mg/dL (0.52-1.04); EST GLOMERULAR FILTRATION RATE > 60.0 ML/MIN; Glucose 172 mg/dL (74-106); Potassium 3.5 mmol/L (3.5-5.1); SGOT/AST 32 U/L (14-36); SGPT/ALT 31 U/L (0-35); SODIUM 138 mmol/L (137-145); Total Protein 7.9 g/dL (6.3-8.2)
[2021-02-17 22:25] LABS: Slide Review 1 YES
[2021-02-17] MEDS: Sodium Chloride 0.9% W/ 20 mEq KCl/LITER 1,000 ML IV SCH (23:34)
[2021-02-18 00:19] LABS: INFLUENZA A NEGATIVE (NEGATIVE); INFLUENZA B NEGATIVE (NEGATIVE); RESPIRATORY SYNCTIAL VIRUS NEGATIVE (Negative)
[2021-02-18] MEDS ORDERED: Zofran 4 MG/2 ML VIAL IV PRN (00:30)
[2021-02-18] MEDS ORDERED: Seroquel 100 MG ONE (02:22)
[2021-02-18] MEDS: LYRICA 150MG PO SCH ×4 (02:25→21:41)
[2021-02-18] MEDS: Seroquel 100 MG PO SCH ×2 (02:25→21:41)
[2021-02-18] MEDS: MORPHINE SULFATE 4 MG INJ IV PRN ×4 (05:47→20:31)
[2021-02-18 06:05] LABS: Absolute Neutrophil Ct (ANC) 5.23 (1.4-6.9); BASOPHIL % 0.3 % (0.0-0.4); Basophil (Absolute #) 0.03 (0-0.4); Eosinophil % 1.2 % (0.00-5.0); Eosinophil (Absolute #) 0.13 (0-0.5); Hematocrit 38.3 % (35-47); Hemoglobin 11.6 gm/dl (12.0-16.0); Lymphocytes % 46.4 % (24.0-44.0); Mean Corpuscular Hemoglobin 29.1 pg (26-32); Mean Corpuscular Hgb Concent. 30.3 g/dl (32-36); Mean Platelet Volume 9.7 fl (7.5-11.0); Monocyte (Absolute #) 0.62 (0.0-1.3); Monocytes % 5.5 % (0.0-12.0); Neutrophil % 46.6 % (36.0-66.0); Platelet Count 280 K/mm3 (150-450); Red Blood Count 3.99 M/mm3 (4.1-5.4); Red Cell Distribution Width 13.4 % (11.5-14.0); White Blood Count 11.2 K/mm3 (4.0-10.5)
[2021-02-18 06:20] LABS: ALBUMIN 3.6 g/dL (3.5-5.0); ALKALINE PHOSPHATASE 69 U/L (38-126); BLOOD UREA NITROGEN 7 mg/dL (7-17); CHLORIDE 108 mmol/L (98-107); Calcium 8.1 mg/dL (8.4-10.2); Carbon Dioxide 27 mmol/L (22-30); Creatinine 1 0.54 mg/dL (0.52-1.04); EST GLOMERULAR FILTRATION RATE > 60.0 ML/MIN; Glucose 131 mg/dL (74-106); SGOT/AST 22 U/L (14-36); SGPT/ALT 24 U/L (0-35); SODIUM 139 mmol/L (137-145); Total Protein 6.3 g/dL (6.3-8.2)
[2021-02-18 06:26] LABS: ANION GAP 8 MEQ/L (5-15)
[2021-02-18 07:24] LABS: Slide Review 1 YES
[2021-02-18] MEDS: Sodium Chloride 0.9% W/ 20 mEq KCl/LITER 1,000 ML IV SCH ×2 (07:54→17:24)
--- NOTE | 2021-02-18 08:18 | XRAY ---
Indication: Right flank/lower quadrant pain. Elevated WBC. Multiple contiguous axial images obtained through the abdomen and pelvis using 80 cc Isovue 370 contrast. Comparison: None Lung bases demonstrates minimal bibasilar subsegmental atelectasis/scarring. 5 mm right lower lobe calcified granuloma. Heart is not enlarged. Noncontrasted stomach and bowel loops appear nonobstructed. Normal appendix. Minimal sigmoid diverticulosis. Partial hysterectomy. Left ovary demonstrates a few cysts, largest 2 cm. No free fluid/air. Gallbladder partially contracted without gallstones. Remaining liver, gallbladder, pancreas, spleen, adrenal glands, kidneys, ureters, and bladder appear unremarkable. Minimal aortoiliac calcifications. No AAA or pathological retroperitoneal lymphadenopathy. Osseous structures intact. Impression: 1. Sigmoid diverticulosis. 2. Remaining CT abdomen/pelvis with contrast exam is negative. Comment: Preliminary interpretation was made by [facility]. No critical discrepancy.
--- NOTE | 2021-02-18 08:34 | PCM.HP ---
History of Present Illness - Chief Complaint Chief Complaint: Partial small bowel obstruction History of Present Illness: is a 35 year old female.status post laparoscopic hysterectomy almost 15 days ago presented in the ER with chief complaint of right lower quadrant sudden onset pain after she lifted a 40 pound box and felt a popping sound in the right lower quadrant. She is complaining of sharp shooting moderate to severe intensity pain which is aggravated with movements palpation and partial relief with being still. She denies any associated nausea or vomiting. Denies any urinary symptoms. Timing/Duration: hour(s) (2), sudden, worse Activities at Onset: activity, other Quality: sharpness (Heavy object) Abdominal Pain Onset Location: right lower quadrant Pain Radiation: no radiation Severity of Pain-Max: moderate Severity of Pain-Current: moderate Modifying Factors: Improves With: rest. Worsens With: movement, palpation Associated Symptoms: denies symptoms Previous symptoms: no prior history No nausea or vomiting - Review of Systems Constitutional: No Fever, No Chills Eyes: No Symptoms Ears, Nose, & Throat: No Symptoms Respiratory: No Cough, No Short Of Breath Cardiac: No Chest Pain, No Edema, No Syncope Abdominal/Gastrointestinal: Abdominal Pain, No Nausea, No Vomiting, No Diarrhea Genitourinary Symptoms: No Dysuria Musculoskeletal: No Back Pain, No Neck Pain Skin: No Rash Neurological: No Dizziness, No Focal Weakness, No Sensory Changes Psychological: No Symptoms Endocrine: No Symptoms Hematologic/Lymphatic: No Symptoms Immunological/Allergic: No Symptoms Medications & Allergies Home Medications: Home Medication List Duloxetine HCl [Cymbalta] 60 mg PO BID 03/04/20 [History Confirmed 02/17/21] Metformin HCl 500 mg [Glucophage 500 MG] 850 mg PO BID 03/04/20 [History Confirmed 02/17/21] Prazosin HCl [Minipress] 2 mg PO HS 03/04/20 [History Confirmed 02/17/21] Pregabalin [Lyrica 150Mg] 150 mg PO TID 03/04/20 [History Confirmed 02/17/21] Quetiapine Fumarate [Seroquel] 100 mg PO HS 02/17/21 [History Confirmed 02/17/21] ziprasidone HCL [Ziprasidone HCl] 60 mg PO BID 02/17/21 [History Confirmed 02/17/21] Allergies/Adverse Reactions: Allergies Allergy/AdvReac Type Severity Reaction Status Date / Time Penicillins Allergy Severe Verified 02/17/21 20:58 naproxen Allergy Intermediate Vomiting Verified 02/17/21 20:58 indomethacin Allergy Vomiting Verified 02/17/21 20:58 - Past Medical History Past Medical History: Yes Endocrine Medical History: Diabetes Type II Musculoskelatal History: Fibromyalgia Pyscho-Social History: Bipolar Comment: mental health. prior back problems. PTSD - Female History Are you now?: No - Past Surgical History Past Surgical History: Yes Female Surgical History: Hysterectomy, Tubal Ligation Other Surgical History: tubes in ears in 2nd grade, ovaries still in place - Social History Smoking Status: Current every day smoker How long have you smoked: 1 1/2 Exposure to second hand smoke: Yes Alcohol: Rarely Drug Use: none - Physical Exam Vital Signs: Vital Signs - 24 hr Temp Pulse Resp BP Pulse Ox 02/18/21 07:54 98.4 F 86 16 101/56 90 L 02/18/21 04:00 98.2 F 82 16 103/65 95 02/18/21 00:59 97.7 F 83 18 119/87 94 L 02/18/21 00:26 91 H 123/92 89 L 02/17/21 23:29 94 L 02/17/21 23:00 91 H 18 119/82 95 02/17/21 22:22 70 118/53 99 02/17/21 21:31 93 H 18 135/78 94 L 02/17/21 21:01 98 F 105 H 18 147/102 97 General Appearance: no apparent distress, alert Neurologic Exam: alert, oriented x 3, cooperative, normal mood/affect, nml cerebellar function, nml station & gait, sensation nml, No motor deficits Eye Exam: PERRL/EOMI, eyes nml inspection Ears, Nose, Throat Exam: normal ENT inspection, TMs normal, pharynx normal, moist mucous membranes Neck Exam: normal inspection, non-tender, supple, full range of motion Respiratory Exam: normal breath sounds, lungs clear, No respiratory distress Cardiovascular Exam: regular rate/rhythm, normal heart sounds, normal peripheral pulses Gastrointestinal/Abdomen Exam: soft, tenderness, other (hypoactive bowel sounds), No distention, No mass, No guarding Back Exam: normal inspection, normal range of motion, No CVA tenderness, No vertebral tenderness Extremity Exam: normal inspection, normal range of motion, pelvis stable Skin Exam: normal color, warm, dry, No rash Lymphatic Exam: No adenopathy Results - Labs Lab/Micro Results: Lab Results-Last 24 Hours 02/17/21 02/17/21 02/17/21 Range/Units 21:18 21:18 21:18 WBC 15.5 H (4.0-10.5) K/mm3 RBC 4.51 (4.1-5.4) M/mm3 Hgb 14.3 (12.0-16.0) gm/dl Hct 42.8 (35-47) % MCV 94.9 (78-100) fl MCH 31.7 (26-32) pg MCHC 33.4 (32-36) g/dl RDW 13.4 (11.5-14.0) % Plt Count 343 (150-450) K/mm3 MPV 9.8 (7.5-11.0) fl Gran % 55.8 (36.0-66.0) % Eos # (Auto) 0.15 (0-0.5) Absolute Lymphs (auto) 5.86 H (1.0-4.6) Absolute Monos (auto) 0.79 (0.0-1.3) Lymphocytes % 37.8 (24.0-44.0) % Monocytes % 5.1 (0.0-12.0) % Eosinophils % 1.0 (0.00-5.0) % Basophils % 0.3 (0.0-0.4) % Absolute Granulocytes 8.68 H (1.4-6.9) Basophils # 0.04 (0-0.4) Sodium 138 (137-145) mmol/L Potassium 3.5 (3.5-5.1) mmol/L Chloride 102 (98-107) mmol/L Carbon Dioxide 28 (22-30) mmol/L Anion Gap 12.6 (5-15) MEQ/L BUN 10 (7-17) mg/dL Creatinine 0.61 (0.52-1.04) mg/dL Estimated GFR > 60.0 ML/MIN Glucose 172 H (74-106) mg/dL POC Glucometer (74 to 106) mg/dL Calcium 9.1 (8.4-10.2) mg/dL Total Bilirubin 0.20 (0.2-1.3) mg/dL AST 32 (14-36) U/L ALT 31 (0-35) U/L Alkaline Phosphatase 93 (38-126) U/L Serum Total Protein 7.9 (6.3-8.2) g/dL Albumin 4.6 (3.5-5.0) g/dL Urine Color YELLOW (YELLOW) Urine Appearance SLIGHTLY CLOUDY (CLEAR) Urine pH 6.0 (5-6) Ur Specific [place] 1.028 (1.005-1.025) Urine Protein 30 (Negative) Urine Ketones NEGATIVE (NEGATIVE) Urine Blood SMALL (0-5) Prosper/ul Urine Nitrite NEGATIVE (NEGATIVE) Urine Bilirubin NEGATIVE (NEGATIVE) Urine Urobilinogen 2 (0-1) mg/dL Ur Leukocyte Esterase TRACE (NEGATIVE) Urine WBC (Auto) 0-2 (0-5) /HPF Urine RBC (Auto) 6-10 (0-2) /HPF U Epithel Cells (Auto) RARE (FEW) /HPF Urine Bacteria (Auto) FEW (NEGATIVE) /HPF Calcium Oxalate Crystal 11-25 (NEGATIVE) /HPF Urine Mucus (Auto) SLIGHT (NEGATIVE) /HPF Urine Culture Reflexed YES (NO) Urine Glucose NEGATIVE (NEGATIVE) mg/dL Influenza Type A Ag (NEGATIVE) Influenza Type B Ag (NEGATIVE) RSV (PCR) (Negative) SARS-CoV-2 (PCR) (NEGATIVE) Slides for Path Review YES 02/17/21 02/18/21 02/18/21 Range/Units 23:40 05:35 05:35 WBC 11.2 H (4.0-10.5) K/mm3 RBC 3.99 L (4.1-5.4) M/mm3 Hgb 11.6 L (12.0-16.0) gm/dl Hct 38.3 (35-47) % MCV 96.0 (78-100) fl MCH 29.1 (26-32) pg MCHC 30.3 L (32-36) g/dl RDW 13.4 (11.5-14.0) % Plt Count 280 (150-450) K/mm3 MPV 9.7 (7.5-11.0) fl Gran % 46.6 (36.0-66.0) % Eos # (Auto) 0.13 (0-0.5) Absolute Lymphs (auto) 5.20 H (1.0-4.6) Absolute Monos (auto) 0.62 (0.0-1.3) Lymphocytes % 46.4 H (24.0-44.0) % Monocytes % 5.5 (0.0-12.0) % Eosinophils % 1.2 (0.00-5.0) % Basophils % 0.3 (0.0-0.4) % Absolute Granulocytes 5.23 (1.4-6.9) Basophils # 0.03 (0-0.4) Sodium 139 (137-145) mmol/L Potassium 4.0 (3.5-5.1) mmol/L Chloride 108 H (98-107) mmol/L Carbon Dioxide 27 (22-30) mmol/L Anion Gap 8 (5-15) MEQ/L BUN 7 (7-17) mg/dL Creatinine 0.54 (0.52-1.04) mg/dL Estimated GFR > 60.0 ML/MIN Glucose 131 H (74-106) mg/dL POC Glucometer (74 to 106) mg/dL Calcium 8.1 L (8.4-10.2) mg/dL Total Bilirubin 0.20 (0.2-1.3) mg/dL AST 22 (14-36) U/L ALT 24 (0-35) U/L Alkaline Phosphatase 69 (38-126) U/L Serum Total Protein 6.3 (6.3-8.2) g/dL Albumin 3.6 (3.5-5.0) g/dL Urine Color (YELLOW) Urine Appearance (CLEAR) Urine pH (5-6) Ur Specific [place] (1.005-1.025) Urine Protein (Negative) Urine Ketones (NEGATIVE) Urine Blood (0-5) Prosper/ul Urine Nitrite (NEGATIVE) Urine Bilirubin (NEGATIVE) Urine Urobilinogen (0-1) mg/dL Ur Leukocyte Esterase (NEGATIVE) Urine WBC (Auto) (0-5) /HPF Urine RBC (Auto) (0-2) /HPF U Epithel Cells (Auto) (FEW) /HPF Urine Bacteria (Auto) (NEGATIVE) /HPF Calcium Oxalate Crystal (NEGATIVE) /HPF Urine Mucus (Auto) (NEGATIVE) /HPF Urine Culture Reflexed (NO) Urine Glucose (NEGATIVE) mg/dL Influenza Type A Ag NEGATIVE (NEGATIVE) Influenza Type B Ag NEGATIVE (NEGATIVE) RSV (PCR) NEGATIVE (Negative) SARS-CoV-2 (PCR) NEGATIVE (NEGATIVE) Slides for Path Review YES 02/18/21 Range/Units 07:07 WBC (4.0-10.5) K/mm3 RBC (4.1-5.4) M/mm3 Hgb (12.0-16.0) gm/dl Hct (35-47) % MCV (78-100) fl MCH (26-32) pg MCHC (32-36) g/dl RDW (11.5-14.0) % Plt Count (150-450) K/mm3 MPV (7.5-11.0) fl Gran % (36.0-66.0) % Eos # (Auto) (0-0.5) Absolute Lymphs (auto) (1.0-4.6) Absolute Monos (auto) (0.0-1.3) Lymphocytes % (24.0-44.0) % Monocytes % (0.0-12.0) % Eosinophils % (0.00-5.0) % Basophils % (0.0-0.4) % Absolute Granulocytes (1.4-6.9) Basophils # (0-0.4) Sodium (137-145) mmol/L Potassium (3.5-5.1) mmol/L Chloride (98-107) mmol/L Carbon Dioxide (22-30) mmol/L Anion Gap (5-15) MEQ/L BUN (7-17) mg/dL Creatinine (0.52-1.04) mg/dL Estimated GFR ML/MIN Glucose (74-106) mg/dL POC Glucometer 128 H (74 to 106) mg/dL Calcium (8.4-10.2) mg/dL Total Bilirubin (0.2-1.3) mg/dL AST (14-36) U/L ALT (0-35) U/L Alkaline Phosphatase (38-126) U/L Serum Total Protein (6.3-8.2) g/dL Albumin (3.5-5.0) g/dL Urine Color (YELLOW) Urine Appearance (CLEAR) Urine pH (5-6) Ur Specific [place] (1.005-1.025) Urine Protein (Negative) Urine Ketones (NEGATIVE) Urine Blood (0-5) Prosper/ul Urine Nitrite (NEGATIVE) Urine Bilirubin (NEGATIVE) Urine Urobilinogen (0-1) mg/dL Ur Leukocyte Esterase (NEGATIVE) Urine WBC (Auto) (0-5) /HPF Urine RBC (Auto) (0-2) /HPF U Epithel Cells (Auto) (FEW) /HPF Urine Bacteria (Auto) (NEGATIVE) /HPF Calcium Oxalate Crystal (NEGATIVE) /HPF Urine Mucus (Auto) (NEGATIVE) /HPF Urine Culture Reflexed (NO) Urine Glucose (NEGATIVE) mg/dL Influenza Type A Ag (NEGATIVE) Influenza Type B Ag (NEGATIVE) RSV (PCR) (Negative) SARS-CoV-2 (PCR) (NEGATIVE) Slides for Path Review Accuchecks Date 02/18/21 Time 07:00 - Radiology Impressions Radiology Exams & Impressions: Radiology Procedures Category Date Time Status ABDOMEN AND PELVIS W CONTRAST [CT] Stat Exams 02/17/21 21:[address]/ABDOMEN AND PELVIS W CONTRAST Indication: Right flank/lower quadrant pain. Elevated WBC. Multiple contiguous axial images obtained through the abdomen and pelvis using 80 cc Isovue 370 contrast. Comparison: None Lung bases demonstrates minimal bibasilar subsegmental atelectasis/scarring. 5 mm right lower lobe calcified granuloma. Heart is not enlarged. Noncontrasted stomach and bowel loops appear nonobstructed. Normal appendix. Minimal sigmoid diverticulosis. Partial hysterectomy. Left ovary demonstrates a few cysts, largest 2 cm. No free fluid/air. Gallbladder partially contracted without gallstones. Remaining liver, gallbladder, pancreas, spleen, adrenal glands, kidneys, ureters, and bladder appear unremarkable. Minimal aortoiliac calcifications. No AAA or pathological retroperitoneal lymphadenopathy. Osseous structures intact. Impression: 1. Sigmoid diverticulosis. 2. Remaining CT abdomen/pelvis with contrast exam is negative. Assessment/Plan (1) Partial obstruction of small intestine Current Visit: Yes Status: Acute Assessment & Plan: improving, Code(s): K56.600 - PARTIAL INTESTINAL OBSTRUCTION, UNSPECIFIED TO CAUSE (2) Sigmoid diverticulosis Current Visit: Yes Status: Acute Code(s): K57.30 - DVRTCLOS OF LG INT W/O PERFORATION OR ABSCESS W/O BLEEDING (3) S/P partial hysterectomy Current Visit: Yes Status: Acute Code(s): Z90.711 - ACQUIRED ABSENCE OF UTERUS WITH REMAINING CERVICAL STUMP
[2021-02-18] MEDS ORDERED: NON-FORMULARY ITEM (Duloxetine Hcl [Cymbalta] 60 MG) PO SCH (10:00)
[2021-02-18] MEDS ORDERED: ZIPRASIDONE HCL 60 MG PO SCH (10:00)
[2021-02-18] MEDS: PROTONIX 40 MG IV IV SCH (10:49)
[2021-02-18] MEDS: Geodon 20 MG Capsule PO SCH ×2 (10:52→17:20)
[2021-02-18] MEDS: Glucophage 850 MG PO SCH ×2 (10:54→17:20)
[2021-02-18] MEDS: Cymbalta 30 MG Capsule PO SCH ×2 (10:54→21:41)
[2021-02-18] MEDS: FLAGYL 500 MG IVPB 500 MG/100 ML BAG IV SCH ×2 (11:28→17:25)
[2021-02-18] MEDS ORDERED: PRAZOSIN HCL 2 MG PO SCH (22:00)
[2021-02-18] MEDS ORDERED: NON-FORMULARY ITEM PO SCH (22:00)
[2021-02-19] MEDS: Sodium Chloride 0.9% W/ 20 mEq KCl/LITER 1,000 ML IV SCH (02:06)
[2021-02-19] MEDS: FLAGYL 500 MG IVPB 500 MG/100 ML BAG IV SCH ×2 (02:07→10:05)
[2021-02-19] MEDS: MORPHINE SULFATE 4 MG INJ IV PRN ×3 (04:06→12:35)
[2021-02-19] MEDS: Glucophage 850 MG PO SCH (08:18)
[2021-02-19] MEDS: Geodon 20 MG Capsule PO SCH (08:37)
[2021-02-19] MEDS: PROTONIX 40 MG IV IV SCH (09:45)
[2021-02-19] MEDS: LYRICA 150MG PO SCH (09:45)
[2021-02-19] MEDS: Cymbalta 30 MG Capsule PO SCH (09:45)
--- NOTE | 2021-02-19 13:00 | PCM.DS ---
Discharge Summary Date of Admission: 02/18/21 00:25 Admitting Physician: JACKY HALEY Primary Care Provider: NO FAMILY DOCTOR Allergies Allergies Penicillins Allergy (Severe, Verified 02/17/21 20:58) naproxen Allergy (Intermediate, Verified 02/17/21 20:58) Vomiting indomethacin Allergy (Verified 02/17/21 20:58) Vomiting Hospital Summary - Hospital Course Hospital Course: Chief Complaint Diagnosis Partial small bowel obstruction Allergies Allergy/AdvReac Type Severity Reaction Status Date / Time Penicillins Allergy Severe Verified 02/17/21 20:58 naproxen Allergy Intermediate Vomiting Verified 02/17/21 20:58 indomethacin Allergy Vomiting Verified 02/17/21 20:58 Vital Signs (Last 24 hours) Temp Pulse Resp BP Pulse Ox 02/19/21 07:20 98.1 F 98 H 18 121/87 95 02/19/21 04:00 98.7 F 87 20 130/84 94 L 02/18/21 23:35 98.4 F 86 17 136/83 94 L 02/18/21 20:03 97.5 F 73 18 129/89 93 L 02/18/21 16:00 97.6 F 86 16 108/70 92 L Home Medications Medication Instructions Recorded Confirmed Last Taken Type Quetiapine Fumarate [Seroquel] 100 mg PO HS 02/17/21 02/17/21 02/17/21 History ziprasidone HCL [Ziprasidone HCl] 60 mg PO BID 02/17/21 02/17/21 02/17/21 History Famotidine 20 mg [Pepcid 20 20 mg PO BID #60 tablet 02/19/21 Unknown Rx MG] PANTOPRAZOLE 40 mg Tablet 40 mg PO QPM #30 tab 02/19/21 Unknown Rx [Protonix 40MG Tablet] Current Medications Generic Name Dose Route Start Last Admin Trade Name Freq PRN Reason Stop Dose Admin Duloxetine HCl 60 mg 02/18/21 10:00 02/19/21 09:45 Cymbalta 30 Mg Capsule PO 03/20/21 09:59 60 mg BID KEEGAN Administration Potassium Chloride/Sodium Chloride 1,000 mls @ 125 mls/hr 02/17/21 23:30 02/19/21 02:06 Sodium Chloride 0.9% W/ 20 Meq Kcl/Liter IV 03/19/21 23:29 125 mls/hr .Q8H KEEGAN Administration Metronidazole 500 mg in 100 mls @ 200 mls/hr 02/18/21 10:00 02/19/21 10:05 Flagyl 500 Mg Ivpb IV 03/20/21 09:59 200 mls/hr Q8H KEEGAN Administration Metformin HCl 850 mg 02/18/21 10:00 02/19/21 08:18 Glucophage 850 Mg PO 03/20/21 09:59 850 mg BIDWM KEEGAN Administration Morphine Sulfate 4 mg 02/18/21 00:30 02/19/21 12:35 Morphine Sulfate 4 Mg Inj IV 02/23/21 00:29 4 mg Q4H PRN PRN Administration PAIN Prazosin 1mg Capsule 2 each 02/18/21 22:00 02/18/21 21:41 PO 03/20/21 21:59 2 each HS KEEGAN Administration Ondansetron HCl 4 mg 02/18/21 00:30 Zofran 4 Mg/2 Ml Vial IV 03/20/21 00:29 Q6H PRN PRN NAUSEA/VOMITING Pantoprazole Sodium 40 mg 02/18/21 10:00 02/19/21 09:45 Protonix 40 Mg Iv IV 03/20/21 09:59 40 mg Q24H10 KEEGAN Administration Pregabalin 150 mg 02/18/21 10:00 02/19/21 09:45 Lyrica 150mg PO 03/20/21 09:59 150 mg TID KEEGAN Administration Quetiapine Fumarate 100 mg 02/18/21 22:00 02/18/21 21:41 Seroquel 100 Mg PO 03/20/21 21:59 100 mg QHS KEEGAN Administration Ziprasidone 60 mg 02/18/21 10:00 02/19/21 08:37 Geodon 20 Mg Capsule PO 03/20/21 09:59 60 mg BIDWM KEEGAN Administration Discontinued Medications Generic Name Dose Route Start Last Admin Trade Name Freq PRN Reason Stop Dose Admin Sodium Chloride 1,000 mls @ 999 mls/hr 02/17/21 21:13 02/17/21 22:29 Sodium Chloride 0.9% 1000 Ml IV 02/17/21 22:13 Infused .Q1H1M STA Infusion Sodium Chloride Confirm 02/17/21 21:24 Sodium Chloride 0.9% 1000 Ml Administered 02/17/21 21:25 Dose 1,000 mls @ ud .ROUTE .STK-MED ONE Morphine Sulfate 4 mg 02/17/21 21:13 02/17/21 21:29 Morphine Sulfate 4 Mg Inj IV 02/17/21 21:14 4 mg STAT ONE Administration Morphine Sulfate Confirm 02/17/21 21:24 Morphine Sulfate 4 Mg Inj Administered 02/17/21 21:25 Dose 4 mg .ROUTE .STK-MED ONE Morphine Sulfate 4 mg 02/17/21 23:30 02/17/21 23:33 Morphine Sulfate 4 Mg Inj IV 02/17/21 23:31 4 mg STAT ONE Administration Morphine Sulfate Confirm 02/17/21 23:32 Morphine Sulfate 4 Mg Inj Administered 02/17/21 23:33 Dose 4 mg .ROUTE .STK-MED ONE Ondansetron HCl 4 mg 02/17/21 21:13 02/17/21 21:28 Zofran 4 Mg/2 Ml Vial IV 02/17/21 21:14 4 mg STAT ONE Administration Ondansetron HCl Confirm 02/17/21 21:23 Zofran 4 Mg/2 Ml Vial Administered 02/17/21 21:24 Dose 4 mg .ROUTE .STK-MED ONE Quetiapine Fumarate Confirm 02/18/21 02:22 Seroquel 100 Mg Administered 02/18/21 02:23 Dose 100 mg .ROUTE .STK-MED ONE Intake & Output (Last 24 hours) 02/17/21 02/18/21 02/19/21 02/20/21 11:59 11:59 11:59 11:59 Intake Total 532 4338 Output Total 2140 Balance 532 2198 Weight 78.5 kg 78.2 kg Microbiology Results (Last 24 hours) 02/17/21 21:18 Urine, Void Urine Culture - Final <10K NORMAL SKIN [place]ANKLIN PROBABLE SKIN CONTAMINANT Laboratory Results (Last 24 hours) 02/19/21 02/19/21 02/18/21 11:12 06:58 20:59 POC Glucometer 100 122 H 126 H 02/18/21 16:19 POC Glucometer 85 Orders (Last 24 hours) Category Date Time Status Discharge Routine Discharge 02/19/21 Ordered POCT GLUCOSE Stat Lab 02/18/21 16:19 Completed POCT GLUCOSE Stat Lab 02/18/21 20:59 Completed POCT GLUCOSE Stat Lab 02/19/21 06:58 Completed POCT GLUCOSE Stat Lab 02/19/21 11:12 Completed Non-Formulary Drug [Non-Formulary Item] Med 02/18/21 22:00 Active 2 each PO HS Quetiapine Fumarate 100 mg [Seroquel 100 MG] Med 02/18/21 22:00 Active 100 mg PO QHS Patient Care Notes (Last 24 hours) 02/19/21 10:10 (created 02/19/21 10:33) Case Management Note by Roxi Talavera DISCUSSION WITH PT ABOUT WHAT DOCTOR SHE NORMALLY GOES TO. PT REPORTS THAT SHE SEES DR. TRIVEDI IN [place] AT THE [facility]. UNABLE TO FIND A DR. TRIVEDI IN [place] TO SCHEDULE A FOLLOWUP APPOINTMENT. INSTRUCTED PT TO F/U WITH HER PRIMARY CARE PHYSICIAN WITHIN THE NEXT 2 WEEKS. Initialized on 02/19/21 10:33 - END OF NOTE Patient is advised to follow up with her Primary Care physician and consider getting EGD to rule out Gastric ulcer. Verbalized Instructions understood - Vitals & Intake/Output Vital Signs: Vital Signs Temperature 98.1 F 02/19/21 07:20 Pulse Rate 98 H 02/19/21 07:20 Respiratory Rate 18 02/19/21 07:20 Blood Pressure 121/87 02/19/21 07:20 O2 Sat by Pulse Oximetry 95 02/19/21 07:20 Intake & Output: Intake & Output 02/17/21 02/18/21 02/19/21 02/20/21 11:59 11:59 11:59 11:59 Intake Total 532 4338 Output Total 2140 Balance 532 2198 Weight 78.5 kg 78.2 kg - Lab Result Diagrams: 02/18/21 05:35 02/18/21 05:35 Lab Results-Last 24 Hrs: Lab Results-Last 24 Hours 02/18/21 02/18/21 02/19/21 Range/Units 16:19 20:59 06:58 POC Glucometer 85 126 H 122 H (74 to 106) mg/dL 02/19/21 Range/Units 11:12 POC Glucometer 100 (74 to 106) mg/dL Micro Results-Entire Visit: Microbiology 02/17/21 21:18 Urine Culture - Final Urine, Void <10K NORMAL SKIN [place] PROBABLE SKIN CONTAMINANT Accuchecks Date 02/18/21 - Radiology Exams Ordered Rad Exams-Entire Visit: Radiology Procedures Category Date Time Status ABDOMEN AND PELVIS W CONTRAST [CT] Stat Exams 02/17/21 21:14 Completed - Procedures and Test Procedures and Tests throughout Hospitalization: Therapy Orders & Screens 02/18/21 01:24 Smoking Cessation Education ONCE Comment: Diagnosis: Partial small bowel obstruction Smoking Status: Current every day smoker How long have you smoked: 1 1/2 Do you dip or chew tobacco: No Discharge Exam General Appearance: no apparent distress, alert Neurologic Exam: alert, oriented x 3, cooperative, normal mood/affect, nml cerebellar function, sensation nml, No motor deficits Eye Exam: PERRL, EOMI, eyes nml inspection Ears, Nose, Throat Exam: normal ENT inspection, pharynx normal, moist mucous membranes Neck Exam: normal inspection, non-tender, supple, full range of motion Respiratory Exam: normal breath sounds, lungs clear, No respiratory distress Cardiovascular Exam: regular rate/rhythm, normal heart sounds Gastrointestinal/Abdomen Exam: soft, No tenderness, No mass Pelvic Exam: deferred Rectal Exam: deferred Back Exam: normal inspection, normal range of motion, No CVA tenderness, No vertebral tenderness Extremity Exam: normal inspection, normal range of motion Skin Exam: normal color, warm, dry Final Diagnosis/Problem List - Final Discharge Diagnosis/Problem (1) Partial obstruction of small intestine Current Visit: Yes Status: Resolved Code(s): K56.600 - PARTIAL INTESTINAL OBSTRUCTION, UNSPECIFIED TO CAUSE (2) Sigmoid diverticulosis Current Visit: Yes Status: Acute Code(s): K57.30 - DVRTCLOS OF LG INT W/O PERFORATION OR ABSCESS W/O BLEEDING (3) S/P partial hysterectomy Current Visit: Yes Status: Acute Code(s): Z90.711 - ACQUIRED ABSENCE OF [place] ERUS WITH REMAINING CERVICAL STUMP (4) GERD with esophagitis Current Visit: Yes Status: Acute Code(s): K21.00 - GASTRO-ESOPHAGEAL REFLUX DIS WITH ESOPHAGITIS, WITHOUT BLEED - Discharge Discharge Date: 02/19/21 Disposition: Home, Self-Care Condition: Stable Prescriptions: New Famotidine 20 mg [Pepcid 20 MG] 20 mg PO BID #60 tablet PANTOPRAZOLE 40 mg Tablet [Protonix 40MG Tablet] 40 mg PO QPM #30 tab Continue Metformin HCl 500 mg [Glucophage 500 MG] 850 mg PO BID Duloxetine HCl [Cymbalta] 60 mg PO BID Pregabalin [Lyrica 150Mg] 150 mg PO TID Prazosin HCl [Minipress] 2 mg PO HS ziprasidone HCL [Ziprasidone HCl] 60 mg PO BID Quetiapine Fumarate [Seroquel] 100 mg PO HS Instructions: Small Bowel Obstruction (DC) Additional Instructions: FOLLOW UP APPOINTMENT WITH DR FARAH 03/15/21 @ 1:20. PHONE # [phone]. COULDN'T GET IN WITH DR HURT FOR SOME TIME. DR FARAH HAD THE FIRST AVAILABLE. Forms: Discharge Instructions
[2021-02-19 13:20] VITALS: BP 123/83; PULSE 87; O2SAT 96
== END 2021-02-19 13:06 | disposition home or self-care (01) ==
LOC: ED 20:43 → MED SURG 02-18 00:25
PROVIDERS: ADMIT General Practice; ATTEND General Practice
DX: K56.600 Partial intestinal obstruction, unspecified as to cause (principal); K57.30 Diverticulosis of large intestine without perforation or abscess without bleeding; Z90.711 Acquired absence of uterus with remaining cervical stump; K21.00 Gastro-esophageal reflux disease with esophagitis, without bleeding; Z79.899 Other long term (current) drug therapy; Z98.890 Other specified postprocedural states; E11.9 Type 2 diabetes mellitus without complications; F31.9 Bipolar disorder, unspecified; Z20.828 Contact with and (suspected) exposure to other viral communicable diseases
CPT/HCPCS: 0241U; 36000; 36415; 74177; 80053; 81001; 82947; 83036; 85025; 87086; 96360; 96374; 96375; 96376; 99285; G0378; J2270; J2405; A9270-GY

== ENCOUNTER 2021-10-13 14:01 | Emergency (ER) | payer OTHER ==
[2021-10-13 14:14] VITALS: BP 114/75; PULSE 88; O2SAT 99
[2021-10-13] MEDS ORDERED: TORAdol 30 mg Injection IM ONE (14:23)
[2021-10-13] MEDS ORDERED: TORAdol 30 mg Injection ONE (14:25)
--- NOTE | 2021-10-13 14:48 | ERPHSYRPT ---
- History of Present Illness Time Seen by Provider: 10/13/21 14:06 Source: patient Exam Limitations: no limitations Patient Subjective Stated Complaint: Pt states "Two days ago my right wrist started to get stiff, tingle and hurt, now my wrist hurts and it hurts all the way up to the elbow." Triage Nursing Assessment: Pt presented alert and oriented X 3, skin wpd Pt ambulates with an upright steady gait, able to speak in clear full sentences pt left wrist not swollen, no bruising or deformity noted, csm x 4. Physician History: 36 years old female with history of chronic pain with occasional tingling numbness in the right hand thumb/second and third digit presented in the ER with 3 days of increasing pain. Patient describes shooting pain from wrist to the fingers especially at nighttime and has to Jeric R hand which make her feel better. No fall or trauma. Occurred: days ago (3) Method of Injury: unknown Quality: sharpness, throbbing Severity of Pain-Max: severe Severity of Pain-Current: severe Extremities Pain Location: wrist: right, hand: right Modifying Factors: Improves With: nothing Associated Symptoms: none Allergies/Adverse Reactions: Penicillins Allergy (Severe, Verified 02/17/21 20:58) naproxen Allergy (Intermediate, Verified 02/17/21 20:58) Vomiting indomethacin Allergy (Verified 02/17/21 20:58) Vomiting Home Medications: Duloxetine HCl [Cymbalta] 60 mg PO BID 03/04/20 [History] Metformin HCl 500 mg [Glucophage 500 MG] 850 mg PO BID 03/04/20 [History] Prazosin HCl [Minipress] 2 mg PO HS 03/04/20 [History] Pregabalin [Lyrica 150Mg] 150 mg PO TID 03/04/20 [History] Quetiapine Fumarate [Seroquel] 100 mg PO HS 02/17/21 [History] ziprasidone HCL [Ziprasidone HCl] 60 mg PO BID 02/17/21 [History] Hx Tetanus, Diphtheria Vaccination/Date Given: Yes Hx Influenza Vaccination/Date Given: Yes Hx Pneumococcal Vaccination/Date Given: Yes Immunizations Up to Date: Yes Travel Risk - International Travel Have you traveled outside of the country in past 3 weeks: No - Coronavirus Screening Are you exhibiting any of the following symptoms?: No Close contact with a COVID-19 positive Pt in past 14-21 Days: No - Vaccine Status Have you recieved a Covid-19 vaccination: No - Review of Systems Constitutional: No Symptoms Eyes: No Symptoms Ears, Nose, & Throat: No Symptoms Respiratory: No Symptoms Cardiac: No Symptoms Musculoskeletal: Joint Pain Skin: No Symptoms Neurological: Sensory Changes Psychological: No Symptoms Endocrine: No Symptoms Hematologic/Lymphatic: No Symptoms Immunological/Allergic: No Symptoms - Past Medical History Pertinent Past Medical History: Yes Endocrine Medical History: Diabetes Type II Musculoskeletal History: Fibromyalgia Psycho-Social History: Bipolar Other Medical History: mental health. prior back problems. PTSD - Past Surgical History Past Surgical History: Yes Female Surgical History: Hysterectomy, Tubal Ligation Other Surgical History: tubes in ears in 2nd grade, ovaries still in place - Social History Smoking Status: Current every day smoker How long have you smoked: 1 1/2 Exposure to second hand smoke: Yes Drug Use: none Patient Lives Alone: No - Female History Hx Last Menstrual Period: hysterectomy Hx Now: No - Nursing Vital Signs Nursing Vital Signs: Initial Vital Signs Temperature 98.8 F 10/13/21 14:09 Pulse Rate 88 10/13/21 14:09 Respiratory Rate 20 10/13/21 14:09 Blood Pressure 114/75 10/13/21 14:09 O2 Sat by Pulse Oximetry 99 10/13/21 14:09 Pain Scale Pain Intensity 9 - Physical Exam General Appearance: no apparent distress, alert Eyes, Ears, Nose, Throat Exam: normal ENT inspection Neck Exam: normal inspection, full range of motion Cardiovascular/Respiratory Exam: normal breath sounds, regular rate/rhythm Elbow/Forearm Exam: normal inspection, non-tender, no evidence of injury, normal ROM Wrist Exam: normal inspection, non-tender, no evidence of injury, normal ROM, pain (postive tinel and phalen , reproducible tingling/pain in median nerve distribution. no wasting in thenar eminence) Hand Exam: normal inspection, non-tender, no evidence of injury, normal ROM Neuro/Tendon Exam: normal sensation, normal motor functions, normal tendon functions Mental Status Exam: alert, oriented x 3, cooperative Skin Exam: normal color SpO2 Interpretation: normal SpO2: 99 O2 Delivery: Room Air Ordered Tests: Medication Summary Discontinued Medications Generic Name Dose Route Start Last Admin Trade Name Freq PRN Reason Stop Dose Admin Ketorolac Tromethamine 30 mg 10/13/21 14:23 10/13/21 14:26 Ketorolac Tromethamine 30 Mg/Ml Inj IM 10/13/21 14:24 30 mg STAT ONE Administration Ketorolac Tromethamine Confirm 10/13/21 14:25 Ketorolac Tromethamine 30 Mg/Ml Inj Administered 10/13/21 14:26 Dose 30 mg .ROUTE .STK-MED ONE - Progress Progress: pain not gone completely Progress Note: 10/13/21 14:47 given toradol and velcrow splint, outpatient follow up with hand surgery . hank nue home pain meds . no h/o trauma and no need to do the imaging 10/13/21 14:47 Counseled pt/family regarding: diagnosis, need for follow-up - Departure Departure Disposition: Home Clinical Impression: Carpal tunnel syndrome on right Condition: Stable Critical Care Time: No Referrals: DOCTOR,NO FAMILY [Primary Care Provider] - Follow up/PCP as directed ORTHO - BHARAT AMEZCUA NP [NON-STAFF PHY W/O PRIVILEGES] - Follow up/PCP as directed (friday morning for re evaluation) IVANA CATHERINE MD [NON-STAFF PHY W/O PRIVILEGES] - Follow up/PCP as directed (call for appointment) Instructions: Carpal Tunnel Syndrome (DC) Additional Instructions: use pain meds which you have at home. follow up with orthopedic/hand surgery for reevaluation. Use splint all the time. Return to ER for any worsening.
== END 2021-10-13 15:06 | disposition home or self-care (01) ==
LOC: ED 14:01
DX: G56.01 Carpal tunnel syndrome, right upper limb (principal); E11.8 Type 2 diabetes mellitus with unspecified complications; Z79.84 Long term (current) use of oral hypoglycemic drugs; Z72.0 Tobacco use
CPT/HCPCS: 96372; 99283; J1885; L3908